=== PATIENT | female | born 1955 | race Caucasian/White ===

== ENCOUNTER 2018-11-23 13:39 | Day surgery (SDC) | payer OTHER ==
[~2018-11-23] VITALS: Ht 167.6 cm; Wt 63.7 kg
[~2018-11-23 13:39] MED LIST: ACTIVELLA PO; FISH OIL 1,2001 EACH PO; Multiple Vitam1 EACH PO
--- NOTE | 2018-11-23 16:27 | NUR ---
11/23/18 1720 Nikole Lindo INJECTED 3MLS OF SALINE & INDIGO CARMINE COMBIND FOR EMR POLYPECTOMY PER DR. ESPINOSA.
== END 2018-11-23 17:16 | disposition home or self-care (01) ==
LOC: ORSCSDS 13:39
PROVIDERS: Internal Medicine Gastroenterology
PROC: 0DBH8ZX Excision of Cecum, Via Natural or Artificial Opening Endoscopic, Diagnostic (ICD-10-PCS; principal; 2018-11-23 15:15)
PROC: 0DBA8ZX Excision of Jejunum, Via Natural or Artificial Opening Endoscopic, Diagnostic (ICD-10-PCS; principal; 2018-11-23 15:15)
PROC: 0DBL8ZX Excision of Transverse Colon, Via Natural or Artificial Opening Endoscopic, Diagnostic (ICD-10-PCS; principal; 2018-11-23 15:15)
DX: R19.5 Other fecal abnormalities (principal); D12.0 Benign neoplasm of cecum; D12.3 Benign neoplasm of transverse colon; R10.84 Generalized abdominal pain; K29.70 Gastritis, unspecified, without bleeding; B96.81 Helicobacter pylori [H. pylori] as the cause of diseases classified elsewhere; K64.8 Other hemorrhoids
CPT/HCPCS: 88305; 88342; J2704; J7120

== ENCOUNTER 2018-12-27 05:54 | Inpatient (IN) | payer OTHER ==
[~2018-12-27] VITALS: Ht 167.6 cm; Wt 63.7 kg
[~2018-12-27 05:54] MED LIST changes: +METR500 PO; +NEOM500 PO
--- NOTE | 2018-12-27 06:38 | NUR ---
History, Chart, Medications and Allergies reviewed before start of procedure. Patient confirms NPO status and agrees with scheduled surgery. Reports taking all of colon prep with clear results and "blood" in it. Jefferson warmer intact.
--- NOTE | 2018-12-27 18:32 | NUR ---
SHIFT SUMMARY PT A&OX4, VSS, S/P LAP HEMICOLECTOMY, IRAM DRAIN, EPIDURAL MANAGES PAIN. ZOFRAN GIVEN X1; CLEAR LIQUID DIET. ABX INFUSED ORDERED PER EMAR. AMB HALLWAY AND SITTING IN CHAIR AT THIS TIME WITH IN ROOM. WILL REPORT TO ONCOMING NOC RN.
--- NOTE | 2018-12-27 23:33 | NUR ---
2330: PT DENIES ABD PAIN, DIZZINESS, SOB. SLEEPING SOUNDLY BUT ROUSES EASILY TO VOICE. BP CONTINUES TO TREND DOWN WHILE PT ASLEEP; FENTANYL EPIDURAL CONTINUOUS RATE DECREASED TO 6 ML/HR. RIZO PATENT, CALL LIGHT IN REACH.
[2018-12-28 04:14] LABS: BASOPHILS ABSOLUTE AUTO 0.01 K/mm3 (0.00-0.23); BASOPHILS PERCENT AUTO 0 % (0-2); EOSINOPHILS ABSOLUTE AUTO 0.01 K/mm3 (0.00-0.68); EOSINOPHILS PERCENT AUTO 0 % (0-6); Hematocrit 29.4 % (33.0-51.0); Hemoglobin 9.5 g/dL (11.5-16.0); IMMATURE GRAN ABSOLUTE AUTO 0.03 K/mm3 (0.00-0.10); IMMATURE GRAN PERCENT AUTO 0 % (0-1); LYMPHOCYTES ABSOLUTE AUTO 0.87 K/mm3 (0.84-5.20); LYMPHOCYTES PERCENT AUTO 10 % (21-46); MONOCYTES ABSOLUTE AUTO 0.72 K/mm3 (0.16-1.47); MONOCYTES PERCENT AUTO 8 % (4-13); Mean Corpuscular HGB Conc 32.3 g/dL (31.5-36.5); Mean Corpuscular Volume 96 fL (80-100); Mean Platelet Volume 9.8 fL (9.1-12.4); NEUTROPHILS ABSOLUTE AUTO 6.98 K/mm3 (1.96-9.15); NEUTROPHILS PERCENT AUTO 81 % (41-73); Platelet Count 168 K/mm3 (150-400); RDW Coefficient Variation 13.2 % (11.7-14.2); RDW Standard Deviation 45.9 fL (35.1-46.3); Red Blood Cell Count 3.06 M/mm3 (3.80-5.20); White Blood Cell Count 8.62 K/mm3 (4.00-11.30)
--- NOTE | 2018-12-28 04:27 | NUR ---
0427: PT RATES ABD PAIN "PRESSURE" AND "MAYBE A 1/10;" EPIDURAL RATE IS INCREASED TO 8 ML/HR. PT'S BP IMPROVED AND PT CONTINUES TO DENY DIZZINESS, HEADACHE, SOB AND MOVES AND REPOSITIONS SELF WELL IN BED. CALL LIGHT IN REACH.
[2018-12-28 04:32] LABS: Anion Gap 6 mmol/L (6-16); Blood Urea Nitrogen 8 mg/dL (8-24); Bun/Creatinine Ratio 11.1 (12.0-20.0); CO2, Blood 24 mmol/L (21-32); Calcium, Blood 7.5 mg/dL (8.5-10.1); Chloride, Blood 105 mmol/L (98-108); Creatinine, Blood 0.72 mg/dL (0.40-1.00); Glomerular Filtration Rate >60 (60-); Glucose, Blood 115 mg/dL (70-99); Potassium, Blood 3.8 mmol/L (3.5-5.5); Sodium, Blood 135 mmol/L (136-145)
--- NOTE | 2018-12-28 07:25 | NUR ---
SUMMARY: POD [address] HASKINS. HYPOTENSIVE WITH FENTANYL EPIDURAL BUT REMAINS ASYMPTOMATIC. MOVES WELL, STEADY ON FEET WITH OOB ACTIVITY. PT SLEPT WELL BETWEEN EPIDURAL ASSESMENTS AND PAIN 1/10 OR LESS THROUGHOUT THE NOC. IV FLUIDS INFUSING, PT TOLERATING CLEAR LIQUIDS. CONTINUE HOURLY EPIDURAL ASSESMENT UNTIL 1100 TODAY.
--- NOTE | 2018-12-28 17:47 | NUR ---
SHIFT SUMMARY PT HAS DONE WELL TODAY. UP IN CHAIR AND AMBULATED x 2. DID INITIALLY STRUGGLE WITH NAUSEA THIS AM BUT HAS BEEN DOING WELL SINCE THIS AM JUST SIPPING ON FLUIDS. PAIN HAS BEEN WONDERFULLY MANAGED WITH THE EPIDURAL.
--- NOTE | 2018-12-29 16:26 | NUR ---
ASSUMING CARE OF PT FROM JERZY WADE.
--- NOTE | 2018-12-29 16:31 | NUR ---
SHIFT SUMMARY PT HAS BEEN PLEASANT AND COOPERATIVE. HAS C/O HAVING SLIGHT NAUSEA T/O SHIFT; NO RELIEF WITH ZOFRAN. HAD 2 LQ BM'S AND PASSING GAS THIS AFTERNOON. AMBULATES EASILY AND SITS UP IN CHAIR T/O DAY. SIPS ON WATER/COFFEE/AZAR MIST AND SNACKS ON SALTINES BUT NO INTEREST IN FOODS DUE TO LINGERING OF NAUSEA. MIDLINE & LAP SITES WNL; EPIDURAL SITE WNL.
--- NOTE | 2018-12-30 07:20 | NUR ---
POD 3 S/P COLECTOMY. PT VSS T/O NIGHT. DRESSING CDI. PT DENIED PAIN T/O NGIHT W/EPIDURAL PER ORDERS. EPIDURAL D/C THIS AM, PT EDUCATED TO CALL WHEN BEGINS TO FEEL PAIN. PT JEREMY PO, NO C/O N/V, REP +FLATUS. PT AMB IN HALLS W/SBA, JEREMY WELL. PT USING CALL LIGHT FOR ASSISTANCE, REP GIVEN TO DAY RN.
[2018-12-30] MEDS ORDERED: HYDR1TAB94 PO (13:42)
--- NOTE | 2018-12-30 15:08 | NUR ---
DR RUIZ IN TO SEE PT.
--- NOTE | 2018-12-30 16:17 | NUR ---
DISCHARGED DC'D IV, CATHETER INTACT. REVIEWED DC PAPERWORK W/PT; VERBALIZED UNDERSTANDING. PT LEFT UNIT IN WC W/POSSESSIONS AND DC PAPERWORK IN HAND, ACCOMPANIED BY SPOUSE.
== END 2018-12-30 15:53 | disposition home or self-care (01) | DRG 331 ==
LOC: SURS 05:54 → PRE IP 07:30 → SURS 11:14
PROVIDERS: ADMIT Surgery
PROC: 0DTK4ZZ Resection of Ascending Colon, Percutaneous Endoscopic Approach (ICD-10-PCS; principal; 2018-12-27 07:30)
DX: C18.0 Malignant neoplasm of cecum (principal)
CPT/HCPCS: 36415; 80048; 85025; 88309; A9270-GY; J1100; J1650; J1885; J2250; J2405; J2543; J2704; J3010; J7120

== ENCOUNTER → 2019-02-17 | Outpatient (CLI) | payer OTHER ==
[~2019-02-17] MED LIST changes: +HYDR1TAB94 PO
== END | disposition home or self-care (01) ==
LOC: LAB 16:20 → LAB SHORT 16:20
PROVIDERS: Legal Medicine
DX: R19.7 Diarrhea, unspecified (principal)
CPT/HCPCS: 87324; 87493

== ENCOUNTER → 2019-02-21 | Outpatient (CLI) | payer OTHER ==
[2019-02-23 16:06] LABS: HPV 16 Negative (Negative); HPV 18 Negative (Negative); HPV OTHER HR TYPES Negative (Negative)
== END | disposition home or self-care (01) ==
LOC: LAB SHORT 16:21 → LAB 16:21
PROVIDERS: Obstetrics & Gynecology
DX: R19.09 Other intra-abdominal and pelvic swelling, mass and lump (principal); N85.2 Hypertrophy of uterus; N85.8 Other specified noninflammatory disorders of uterus
CPT/HCPCS: 87624; 88142; 88305

== ENCOUNTER 2020-02-17 08:43 | Day surgery (SDC) | payer OTHER ==
[~2020-02-17] VITALS: Ht 167.6 cm; Wt 60.0 kg
== END 2020-02-17 11:10 | disposition home or self-care (01) ==
LOC: ORSCSDS 08:43
PROVIDERS: Internal Medicine Gastroenterology
PROC: 0DBN8ZX Excision of Sigmoid Colon, Via Natural or Artificial Opening Endoscopic, Diagnostic (ICD-10-PCS; principal; 2020-02-17 10:00)
DX: Z86.010 Personal history of colon polyps (principal); Z85.038 Personal history of other malignant neoplasm of large intestine; D12.5 Benign neoplasm of sigmoid colon; K64.8 Other hemorrhoids; Z79.899 Other long term (current) drug therapy
CPT/HCPCS: 88305; J2704; J7120

== ENCOUNTER → 2020-03-08 | Outpatient (CLI) | payer OTHER | END | disposition home or self-care (01) | LOC: LAB UCHC 07:27 → LAB SHORT 07:27 | DX: N95.0 Postmenopausal bleeding (principal) | CPT/HCPCS: 88305 ==

== ENCOUNTER 2022-07-10 07:32 | Day surgery (SDC) | payer MEDICARE ==
[2022-07-10] VITALS (11 sets, daily range): BP systolic 135–158; BP diastolic 61–84
[~2022-07-10] VITALS: Ht 165.1 cm; Wt 61.5 kg
[2022-07-10] MEDS ORDERED: ASPI81CH PO (09:15)
--- NOTE | 2022-07-10 09:30 | NUR ---
Ambulatory in Day Surgery. History, Chart, Medications and Allergies reviewed before start of procedure.Patient confirms NPO status and agrees with scheduled surgery. Lungs clear T/O to Auscultation. Patient reports completing Chlorhexadine shower X2 prior to admission to hospital. Pre-Op teaching done. Pt verbalizes understanding. Patient States Post-Procedure ride home has been arranged.
[2022-07-10] MEDS ORDERED: HYDR1TAB94 PO (14:11)
[2022-07-10] MEDS ORDERED: IBUP800 PO (14:12)
--- NOTE | 2022-07-10 15:30 | NUR ---
DISCHARGE SUMMARY PT A&OX4, VSS/RA, JEREMY PO, VOIDING, AMB INDEPENDENTLY/DRESSED SELF/UP TO CHAIR, PAIN MANAGED WITH TYLENOL/TORADOL, IV DC'D. DC INS PROVIDED. PT REP UNDERSTANDING THOSE INSTRUCTIONS. LEFT FLOOR VIA WC WITH BRAND COORDINATOR TO GO HOME WITH FRIEND WITH ALL PERSONAL POSSESSIONS INCLUDING DC PACKET. T[facility] FOR PT TO REPORTING COORDINATOR AT DC.
== END 2022-07-10 15:35 | disposition home or self-care (01) ==
LOC: ORSCMMR 07:32 → ORD 09:30 → ORSCMMR 09:30 → SURS 12:23 → ORSCMMR 15:35
PROVIDERS: Obstetrics & Gynecology
PROC: 0UT9FZZ Resection of Uterus, Via Natural or Artificial Opening With Percutaneous Endoscopic Assistance (ICD-10-PCS; principal; 2022-07-10 09:30)
PROC: 0UT7FZZ Resection of Bilateral Fallopian Tubes, Via Natural or Artificial Opening With Percutaneous Endoscopic Assistance (ICD-10-PCS; principal; 2022-07-10 09:30)
PROC: 0UT2FZZ Resection of Bilateral Ovaries, Via Natural or Artificial Opening With Percutaneous Endoscopic Assistance (ICD-10-PCS; principal; 2022-07-10 09:30)
DX: N95.0 Postmenopausal bleeding (principal); R93.89 Abnormal findings on diagnostic imaging of other specified body structures; N83.8 Other noninflammatory disorders of ovary, fallopian tube and broad ligament; D25.9 Leiomyoma of uterus, unspecified; N83.292 Other ovarian cyst, left side; N83.291 Other ovarian cyst, right side; N80.03 Adenomyosis of the uterus; Q50.5 Embryonic cyst of broad ligament; Z85.038 Personal history of other malignant neoplasm of large intestine; Z79.82 Long term (current) use of aspirin
CPT/HCPCS: 88307; J0690; J1885; J2405; J2704; J3010; J7120

== ENCOUNTER 2023-02-16 07:45 | Day surgery (SDC) | payer MEDICARE ==
[~2023-02-16] VITALS: Ht 165.1 cm; Wt 58.0 kg
[~2023-02-16 07:45] MED LIST changes: +ASPI81CH PO; +IBUP800 PO
[2023-02-16 09:56] VITALS: BP 129/65
== END 2023-02-16 09:53 | disposition home or self-care (01) ==
LOC: ORSCSDS 07:45
PROVIDERS: Specialist
PROC: 0DJD8ZZ Inspection of Lower Intestinal Tract, Via Natural or Artificial Opening Endoscopic (ICD-10-PCS; principal; 2023-02-16 09:00)
DX: Z12.11 Encounter for screening for malignant neoplasm of colon (principal); Z85.038 Personal history of other malignant neoplasm of large intestine; Z86.010 Personal history of colon polyps; K64.8 Other hemorrhoids; Z79.82 Long term (current) use of aspirin; Z79.899 Other long term (current) drug therapy
CPT/HCPCS: J2704; J7120